=== PATIENT | male | born 1970 | race Caucasian/White ===

== ENCOUNTER 2025-04-10 00:48 | Day surgery (SDC) | payer OTHER, SELFPAY ==
[2025-04-01 09:38] VITALS: BMI 20.6
--- NOTE | 2025-04-01 09:57 | PC.NURSE ---
Report to Hospital entrance 7 to the right of the green pavilion located off [facility] by 'anne parking lot, at time _0600_ on date _[id number]_. Planned Procedure Time: _0730_. Time changes happen often and if your time is changed the preop area will call you the afternoon before. - You and your visitor will be asked to self-screen and do not enter if you have any COVID symptoms. Please call surgeon if you need to reschedule. - A mask is optional within the hospital at this time. Patients may have clear liquids (water, carbonated beverages, clear teas, apple juice) until 3 hours prior to surgery with a maximum of 20 ounces. - No food from midnight until time of surgery and no smoking, or chewing tobacco (or any form of nicotine). No chewing gum, candy or mints. Take only the following medications with a SIP of water on the morning of surgery: __Acetaminophen if needed.___ DO NOT STOP ANY OF YOUR OTHER PRESCRIPTION MEDICATIONS PRIOR TO SURGERY EXCEPT THE FOLLOWING Hold all vitamins and supplements for 3 days per anesthesiologist. Medications to discontinue per physician Ibuprofen and Diclofenac as instructed by Dr Blevins office. Date to take last dose Please no make-up, nail greenlandic, hairspray, perfume, deodorant, or body powder the day of surgery. No jewelry (including any body piercings) or valuables the day of surgery, leave them at home. Please take a shower or bath the night before, or the morning of, surgery with an antibacterial soap. Wear comfortable, loose fitting clothing. - Jewelry must be removed prior to entering the operating room. Rings and piercings that are not removed may be cut off. - The hospital will not accept responsibility for valuables. - Please leave all valuables, including medications, at home the day of surgery. If you are going home after surgery, a licensed belly dump driver must drive you home. - NO public transportation without another adult if you receive anesthesia. - We recommend that an adult stay with you for 24 hours following discharge. - We also recommend that you do not drive, make important decision, drink alcoholic beverages, or take any drugs that were not prescribed by your health care provider for at least 24 hours after your discharge time. Follow any additional instructions given to you from your surgeon. Telephone instructions given to _Sylwia Griffin___and asked if any additional questions and then verbalized understanding. Patient advised to call surgeon office or pre surgery nurse liaison [phone] if any additional questions.
--- NOTE | 2025-04-02 09:08 | P.HP_ITS ---
History of Present Illness History of Present Illness Consent: Risks, benefits, and alternatives have been discussed and questions answered. Patient agrees to proceed with procedure. Chief complaint: Post Traumatic Male Urethral Stricture Narrative: Sagar Qiu is a 54 year old male With a several month history of persistent obstructive voiding symptoms and residual volumes of approximately 150 cc. The symptoms have persisted despite combination therapy for BPH with both tamsulosin and finasteride. Cystoscopy demonstrated a moderately constricting bulbous urethral stricture with essentially no significant prostatic hyperplasia. After discussion of options he has elected for cystoscopy with urethral dilatation with the understanding that his voiding symptoms may persist and stricture may recur. Review of Systems Review of Systems: All systems reviewed & are unremarkable except as noted in HPI and below PMFSH Past Medical History Medical History (Updated 04/02/25 @ 09:10 by Ismael Blevins MD) Left hip pain Generalized osteoarthritis of multiple sites Hepatitis C virus infection cured after antiviral drug therapy Pulpitis Presbyopia Myopia Abdominal hernia BPH (benign prostatic hyperplasia) Family History Family History (Updated 10/11/22 @ 13:41 by Heidi Mondragon MA) Father Diabetes mellitus Hypertension Cerebrovascular accident Mother No problems noted. Social History Social History (Updated 10/11/22 @ 13:40 by Heidi Mondragon MA) Smoking status: Current every day smoker Alcohol intake: never Substance use: former Substance use type: opiates Living arrangements: incarcerated Meds Home Medications and Allergies Home Medications Medication Instructions Recorded Confirmed Type acetaminophen 325 mg capsule 325 mg PO Q6H PRN pain 10/11/22 04/01/25 History finasteride 5 mg tablet 5 mg PO DAILY 10/11/22 04/01/25 History ibuprofen 600 mg tablet 600 mg PO TID 10/11/22 04/01/25 History tamsulosin 0.4 mg capsule 0.4 mg PO DAILY 10/11/22 04/01/25 History chlorpheniramine maleate 4 mg 4 mg PO Q6H PRN allergy symptoms 04/01/25 04/01/25 History tablet (Aller-Chlor) diclofenac sodium 1 % topical gel 2 g topical BID 04/01/25 04/01/25 History (Arthritis Pain (diclofenac)) hydrocortisone 0.5 % topical cream 1 applic topical DAILY PRN itching 04/01/25 04/01/25 History Allergies Allergy/AdvReac Type Severity Reaction Status Date / Time aspirin AdvReac Severe Anaphylaxis Verified 04/01/25 09:24 Exam Const: General: no acute distress Resp: Effort & Inspection: normal respiratory effort GI: Inspection: non-distended GI Palp: No abdominal tenderness and No Guarding due to palpation present (GI) Auscultation: normal bowel sounds Assessment and Plan Assessment and plan (1) Bulbous urethral stricture: Code(s): N35.912 - Unspecified bulbous urethral stricture, male Status: Acute Assessment and Plan: * Cystoscopy, urethral dilatation
[2025-04-10 06:10] VITALS: BP 145/78; PULSE 54; RESP 18; TEMP 36.3; O2SAT 100
--- NOTE | 2025-04-10 06:21 | WPDHPUPDATE1 ---
History and Physical Update Update Date/Time: 04/10/25 06:21 History and Physical has been reviewed, including an updated exam of the patient. There are NO changes in the patient's condition. Risks, benefits, and alternatives have been discussed and questions answered. Patient agrees to proceed with procedure.
[2025-04-10] MEDS: LACTATED RINGERS 1,000 ML 30 ML IV CONT (06:30)
--- NOTE | 2025-04-10 06:37 | P.PNAN_ITS ---
Anes - Initial Pre Proc Eval Procedure: Operation Date: 04/10/25 07:30 Proposed Procedures p Cystoscopy, Urethral Dilatation - Ismael Blevins MD Date/Time: 04/10/25 06:37 Surgeon: Ismael Blevins MD Pre Op Diagnosis: Post Traumatic Male Urethral Stricture Patient Data Age: 54 Gender: M Height: 1.75 m Weight: 63.4 kg Allergies Allergy/AdvReac Type Severity Reaction Status Date / Time aspirin AdvReac Severe Anaphylaxis Verified 04/10/25 06:37 Home Medications Medication Instructions Recorded Confirmed Type acetaminophen 325 mg capsule 325 mg PO Q6H PRN pain 10/11/22 04/01/25 History finasteride 5 mg tablet 5 mg PO DAILY 10/11/22 04/01/25 History ibuprofen 600 mg tablet 600 mg PO TID 10/11/22 04/01/25 History tamsulosin 0.4 mg capsule 0.4 mg PO DAILY 10/11/22 04/01/25 History chlorpheniramine maleate 4 mg 4 mg PO Q6H PRN allergy symptoms 04/01/25 04/01/25 History tablet (Aller-Chlor) diclofenac sodium 1 % topical gel 2 g topical BID 04/01/25 04/01/25 History (Arthritis Pain (diclofenac)) hydrocortisone 0.5 % topical cream 1 applic topical DAILY PRN itching 04/01/25 04/01/25 History Laboratory Tests 04/10/25 06:22 PT Pending INR Pending APTT Pending Patient hx anesthesia problems: none Family hx anesthesia problems: none Results Review: All pre-operative results and documents have been reviewed as part of the pre- operative evaluation. [facility] Past Medical History Medical History Left hip pain Generalized osteoarthritis of multiple sites Hepatitis C virus infection cured after antiviral drug therapy Pulpitis Presbyopia Myopia Abdominal hernia BPH (benign prostatic hyperplasia) Family History Family History Father Diabetes mellitus Hypertension Cerebrovascular accident Mother No problems noted. Social History Social History Smoking status: Current every day smoker Alcohol intake: never Substance use: former Substance use type: opiates Living arrangements: incarcerated Anes - Eval Final PreProcedure Day of Procedure 04/10/25 06:37 Patient weight: normal Heart: regular rate and rhythm Lungs: clear to auscultation Airway: Mallampati scale class II Neurological: alert and oriented Last oral intake: >/= 8 hours ASA classification: III Emergent: no Anesthetic plan: proceed Anesthesia type and monitoring: general GIVS and standard monitoring Results Review: All pre-operative results and documents have been reviewed as part of the pre- operative evaluation. Informed Consent: The patient's anesthetic plan and its attendant risks and benefits were discussed with the patient/family/POA. Questions were solicited and answers provided to the satisfaction of the patient/family/POA.
[2025-04-10 06:51] LABS: Prothrombin Time 13.8 Seconds (11.1-14.7)
[2025-04-10 06:52] LABS: Partial Thromboplastin Time 29.2 Seconds (22.3-36.8)
[2025-04-10] MEDS: ceFAZolin 2 GM/D5W 50 ML 2 GM/50 ML BAG IVPB (07:27)
[2025-04-10] MEDS: LIDOCAINE 2% GEL UROJET 10 ML PKG MUCOUS MEM (07:35)
--- NOTE | 2025-04-10 07:50 | W.PM.PROC2 ---
Procedure Note - Detailed Date of Procedure 04/10/25 Pre-op Diagnosis Post Traumatic Male Urethral Stricture Post-op Diagnosis Same Procedure Performed Cystoscopy, urethral dilatation Surgeon Ismael Blevins MD Anesthesia General Description of Procedure Patient is brought to the operative suite was prepped draped in routine sterile fashion while in dorsal lithotomy position after the uneventful induction of a general LMA anesthetic. Cystoscopy was undertaken with a 19 F rigid cystoscope. He has several concentric urethral strictures extending from the proximal penile urethra into the bulbous urethra. Has minimal prostatic hyperplasia. The bladder was mildly trabeculated with 1 small cellule in the right lateral wall. Ureteral orifices are normal position with clear efflux. Urethra was dilated from 16 F to 30 F with Gilda sounds. Repeat ureteroscopy shows no significant urethral trauma so I opted not to place a Clemente catheter. The cystoscope was removed and he was taken recovery room good condition. Urine Output 0 Drains No Pathology None sent Complications No immediate complications Disposition PACU
[2025-04-10 07:51] VITALS: BP 98/53; PULSE 53; RESP 11; TEMP 36.7; O2SAT 100
[2025-04-10 08:05] VITALS: BP 107/83; PULSE 45; RESP 12; O2SAT 100
[2025-04-10 08:25] VITALS: BP 136/87; PULSE 58; RESP 12; O2SAT 100
[2025-04-10 08:27] VITALS: BP 149/81; PULSE 58; RESP 14; O2SAT 96
[2025-04-10] MEDS: oxyCODONE HCL (*CRX) 5 MG TAB IR PO (08:36)
[2025-04-10 08:55] VITALS: BP 137/77; PULSE 51; RESP 14
--- NOTE | 2025-04-10 09:01 | SUR.PHASEII ---
0900: REady for dc. Waiting on prescription to be signed by physician.
== END 2025-04-10 09:06 | disposition home or self-care (01) ==
PROVIDERS: Anesthesiology; Visit Provider Urology
PROC: 0T7D8ZZ Dilation of Urethra, Via Natural or Artificial Opening Endoscopic (ICD-10-PCS; CPT 52281; principal; 2025-04-10 07:30)
DX: N35.912 Unspecified bulbous urethral stricture, male (principal); N40.0 Benign prostatic hyperplasia without lower urinary tract symptoms; M15.0 Primary generalized (osteo)arthritis; F17.210 Nicotine dependence, cigarettes, uncomplicated; Z79.1 Long term (current) use of non-steroidal anti-inflammatories (NSAID); Z82.49 Family history of ischemic heart disease and other diseases of the circulatory system
CPT/HCPCS: 52281; 36415; 85610; 85730; A9270; J0690; J1100; J2003; J2250; J2405; J2704; J3010; J7120

== ENCOUNTER 2025-04-29 10:13 | Outpatient (CLI) | payer OTHER, SELFPAY ==
--- NOTE | 2025-04-29 11:00 | NEURO_ITS ---
Impression: # Complains of numbness of feet. ? # Left peroneal neuropathy around the knee. ? # Left posterior tibial neuropathy. ? # Mildly abnormal Needle/EMG exam without any neurogenic changes noted. ? # Clinical correlation recommended. Nerve Conduction Studies Anti Sensory Summary Table ?Stim Site NR Peak (ms) P-T Amp (?V) Site1 Site2 Delta-P (ms) Dist (cm) Jose (m/s) Left Sup Fibular Anti Sensory (Ant Lat Mall) 14 cm ? 3.4 9.4 14 cm Ant Lat Mall 3.4 16.0 47 Right Sup Fibular Anti Sensory (Ant Lat Mall) 14 cm ? 3.7 16.8 14 cm Ant Lat Mall 3.7 16.0 43 Left Sural Anti Sensory (Lat Mall) Calf ? 3.8 26.2 Calf Lat Mall 3.8 16.0 42 Right Sural Anti Sensory (Lat Mall) Calf ? 3.7 3.6 Calf Lat Mall 3.7 16.0 43 Motor Summary Table ?Stim Site NR Onset (ms) O-P Amp (mV) Site1 Site2 Delta-0 (ms) Dist (cm) Jose (m/s) Left Peroneal Motor (Vastus Med) Ankle ? 4.9 2.6 Popit Ankle 10.3 43.0 42 Popit ? 15.2 1.8 Right Peroneal Motor (Vastus Med) Ankle ? 4.4 2.5 Popit Ankle 8.7 41.0 47 Popit ? 13.1 3.4 Left Tibial Motor (Abd Arce Brev) Ankle ? 7.5 1.2 Knee Ankle 8.0 43.0 54 Knee ? 15.5 1.9 Right Tibial Motor (Abd Arce Brev) Ankle ? 4.5 1.1 Knee Ankle 10.0 43.0 43 Knee ? 14.5 0.7 F Wave Studies ?NR F-Lat (ms) L-R F-Lat (ms) Left Peroneal (Mrkrs) (EDB) ? 55.78 1.60 Right Peroneal (Mrkrs) (EDB) ? 54.18 1.60 Left Tibial (Mrkrs) (Abd Hallucis) ? 55.79 0.23 Right Tibial (Mrkrs) (Abd Hallucis) ? 56.03 0.23 EMG ?Side Muscle Nerve Root Ins Act Fibs Amp Dur Recrt Comment Right AntTibialis Dp Br Fibular L4-5 Nml Nml Nml Nml Nml Right Gastroc Tibial S1-2 Nml Nml Nml Nml Nml Right Fibularis Long Sup Br Fibular L5-S1 Nml Nml Nml Nml Nml Right Flex Dig Long Tibial L5-S2 Nml Nml Nml Nml Nml Right Ext Dig Brev Dp Br Fibular L5, S1 Nml Nml Nml Nml Nml Right QuadratusFem QuadFemoris L4-5, S1 Nml Nml Nml Nml Nml Left AntTibialis Dp Br Fibular L4-5 Nml Nml Nml >12ms Nml Left Gastroc Tibial S1-2 Nml Nml Nml >12ms Nml Left Fibularis Long Sup Br Fibular L5-S1 Nml Nml Nml Nml Nml Left Flex Dig Long Tibial L5-S2 Nml Nml Nml Nml Nml Left Ext Dig Brev Dp Br Fibular L5, S1 Nml Nml Nml >12ms Nml Left QuadratusFem QuadFemoris L4-5, S1 Nml Nml Nml Nml Nml
== END 2025-04-29 10:14 | disposition home or self-care (01) ==
PROVIDERS: Visit Provider Physician Assistant
DX: R20.2 Paresthesia of skin (principal); G62.89 Other specified polyneuropathies
CPT/HCPCS: 95886; 95910